=== PATIENT | female | born 1975 | race Caucasian/White ===

== ENCOUNTER 2022-10-24 09:59 | Outpatient (CLI) | payer BC, SELFPAY ==
[2022-10-24 14:11] LABS: Cholesterol* 270 mg/dL (90-199); Glucose* 123 mg/dL (60-115); HDL Cholesterol* 41 mg/dL (>=50); LDL Cholesterol Calculated 133 mg/dL (<100)
[2022-10-24 14:18] LABS: Triglycerides* 482 mg/dL (40-149)
[2022-10-24 17:51] LABS: Free T4 Free Thyroxine* 0.85 ng/dL (0.70-1.85)
== END 2022-10-24 10:00 | disposition home or self-care (01) ==
LOC: NFLDREF 10:00
PROVIDERS: PCP Family Medicine; Visit Provider Obstetrics & Gynecology
DX: Z01.419 Encounter for gynecological examination (general) (routine) without abnormal findings (principal); E88.81 Metabolic syndrome and other insulin resistance; E78.5 Hyperlipidemia, unspecified; E03.9 Hypothyroidism, unspecified; I10 Essential (primary) hypertension; F41.9 Anxiety disorder, unspecified; E13.9 Other specified diabetes mellitus without complications
CPT/HCPCS: 80061; 82947; 84439; 84443

== ENCOUNTER 2022-11-07 08:07 | Outpatient (CLI) | payer BC, SELFPAY ==
--- NOTE | 2022-11-07 08:15 | CRLHL7_ITS ---
For Patients: As a result of the Cures Act, medical imaging exams and procedure reports are released immediately into your electronic medical record. You may view this report before your referring provider. If you have questions, please contact your health care provider. BILATERAL SCREENING MAMMOGRAM WITH COMPUTER-AIDED DETECTION AND TOMOSYNTHESIS TECHNIQUE: CC and MLO views were obtained. These mammographic images have been obtained using full-field digital technique. These mammographic images were interpreted with the benefit of computer-aided detection. Breast Tomosynthesis was used in this interpretation. COMPARISON FILM: 08/25/21, 07/21/20, 06/06/19 FINDINGS: The breasts are heterogeneously dense, which may obscure small masses IMPRESSION: There is no radiographic evidence for malignancy. ASSESSMENT: BI-RADS Category 2: Benign RECOMMENDATION: Routine screening mammogram in 1 year. A lay language report of this examination will be provided to the patient. VALENTINE SANTANA M.D. Diagnostic/Nuclear Medicine Radiologist [email or web address] SAM:[email or web address] Transcribed: 3:19 p.mIsaias dang/Dictated by: Valentine Santana MD @ 11/07/2022 8:50:00 AM (Electronically Signed)
== END 2022-11-07 08:08 | disposition home or self-care (01) ==
LOC: MAMMO 08:08
PROVIDERS: PCP Family Medicine; Visit Provider Obstetrics & Gynecology
DX: Z12.31 Encounter for screening mammogram for malignant neoplasm of breast (principal); R92.2 Inconclusive mammogram
CPT/HCPCS: 77063; 77067

== ENCOUNTER 2023-01-02 09:00 | Outpatient (CLI) | payer BC, SELFPAY | END 2023-01-02 09:01 | disposition home or self-care (01) | LOC: NFLDREF 01-03 12:43 | PROVIDERS: PCP Family Medicine; Referring Provider Family Medicine; Visit Provider Obstetrics & Gynecology | DX: E03.9 Hypothyroidism, unspecified (principal) | CPT/HCPCS: 84443 ==

== ENCOUNTER 2023-11-24 14:27 | Outpatient (CLI) | payer BC, SELFPAY ==
--- NOTE | 2023-11-24 | MM_ITS ---
BILATERAL SCREENING MAMMOGRAPHY. COMPARISON: 11/07/2022, 08/25/2021, 07/21/2020. FINDINGS: BREAST PARENCHYMA IS HETEROGENEOUSLY DENSE. NO SUSPICIOUS FINDINGS. NO EVIDENCE OF MALIGNANCY. IMPRESSION: NO EVIDENCE OF MALIGNANCY. RECOMMENDATIONS: ANNUAL BILATERAL SCREENING MAMMOGRAPHY. BI-RADS CATEGORY 1. NEGATIVE.
== END 2023-11-24 14:28 | disposition home or self-care (01) ==
LOC: MAMMO 14:28
PROVIDERS: PCP Family Medicine; Visit Provider Obstetrics & Gynecology
DX: Z12.31 Encounter for screening mammogram for malignant neoplasm of breast (principal); R92.2 Inconclusive mammogram
CPT/HCPCS: 77063; 77067

== ENCOUNTER 2023-12-12 10:20 | Outpatient (CLI) | payer BC, SELFPAY | END 2023-12-12 10:21 | disposition home or self-care (01) | PROVIDERS: PCP Family Medicine; Visit Provider Obstetrics & Gynecology | DX: E03.9 Hypothyroidism, unspecified (principal); E78.5 Hyperlipidemia, unspecified | CPT/HCPCS: 80061; 84443 ==

== ENCOUNTER 2024-06-25 08:41 | Outpatient (CLI) | payer BC, SELFPAY | END 2024-06-25 08:42 | disposition home or self-care (01) | PROVIDERS: PCP Family Medicine; Visit Provider Family Medicine | DX: E03.9 Hypothyroidism, unspecified (principal); E78.5 Hyperlipidemia, unspecified; I10 Essential (primary) hypertension | CPT/HCPCS: 80048; 80061; 84439 ==

== ENCOUNTER 2025-01-31 09:12 | Outpatient (CLI) | payer OTHER, SELFPAY ==
--- NOTE | 2025-01-31 09:15 | CRLHL7_ITS ---
For Patients: As a result of the Century Cures Act, medical imaging exams and procedure reports are released immediately into your electronic medical record. You may view this report before your referring provider. If you have questions, please contact your health care provider. INDICATION: BILATERAL SCREENING MAMMOGRAM, ASYMPTOMATIC 49 Y/O FEMALE COMPARISON: 11/24/23, 11/07/22, 08/25/21 TECHNIQUE: CC and MLO views were obtained. These mammographic images have been obtained using full-field digital technique. These mammographic images were interpreted with the benefit of computer aided detection and tomosynthesis. BREAST COMPOSITION: The breasts are heterogeneously dense, which may obscure small masses. FINDINGS: No suspicious findings. ASSESSMENT: BI-RADS 2 Benign RECOMMENDATION: Annual screening mammogram. A lay language report of this examination will be provided to the patient. Dictated by: Kleber Wooten MD @ 02/06/2025 13:17:38 (Electronically Signed)
== END 2025-01-31 09:13 | disposition home or self-care (01) ==
LOC: MAMMO 09:13
PROVIDERS: PCP Family Medicine; Visit Provider Family Medicine
DX: Z12.31 Encounter for screening mammogram for malignant neoplasm of breast (principal); R92.333 Mammographic heterogeneous density, bilateral breasts
CPT/HCPCS: 77063; 77067

== ENCOUNTER 2025-07-25 08:54 | Outpatient (CLI) | payer OTHER, SELFPAY | END 2025-07-25 08:55 | disposition home or self-care (01) | PROVIDERS: PCP Family Medicine; Visit Provider Family Medicine | DX: E88.81 Metabolic syndrome and other insulin resistance (principal); I10 Essential (primary) hypertension; E03.9 Hypothyroidism, unspecified; E78.2 Mixed hyperlipidemia | CPT/HCPCS: 80053; 80061; 84443 ==